=== PATIENT | male | born 1985 | race Caucasian/White ===

== ENCOUNTER 2021-05-17 02:06 | Emergency (ER) | payer MEDICAID ==
[~2021-05-17] VITALS: Ht 188 cm; Wt 72.6 kg
[2021-05-17 02:30] VITALS: BP_SYST 102
--- NOTE | 2021-05-17 03:10 | NUR ---
Patient BIB by law enforcement officers . C/O medical clearance x today. Per reported, patient had right wrist pain, redness and swelling for couple days.
--- NOTE | 2021-05-17 03:58 | NUR ---
ER Dr. Bernal at bedside examining patient.
[2021-05-17] MEDS ORDERED: HYDROcodone/ACETAMIN 5-325 MG TAB (NORCO/ VICODIN) PO ONE (04:00)
[2021-05-17] MEDS ORDERED: KETOROLAC TROMETHAMINE 30 MG VIAL IVP ONE (04:00)
[2021-05-17] MEDS ORDERED: CLINDAMYCIN 900 mg/50mL D5W 50 ML IV ONE (04:00)
[2021-05-17] MEDS ORDERED: cefTRIAXone 1 GM in LIDOCAINE 1%, 20 ML MDV 2.1 ML IM ONE (04:00)
[2021-05-17] MEDS ORDERED: HYDR-3917 PO (04:19)
[2021-05-17] MEDS ORDERED: CLIN300C12 PO (04:19)
[2021-05-17] MEDS ORDERED: IBUP-1969 PO (04:19)
[2021-05-17] MEDS ORDERED: cefTRIAXone 1 GM IVPB PREMIX 50 ML IV ONE (04:35)
[2021-05-17] MEDS ORDERED: NACL 0.9% 1,000 ML IV ONE (04:45)
[2021-05-17] MEDS ORDERED: BACITRACIN 1 GM OINT TP ONE (04:48)
[2021-05-17 04:56] VITALS: BP_SYST 102
--- NOTE | 2021-05-17 04:56 | NUR ---
Patient D/C to custody with law enforcement officers. Patient given written and verbal discharge instructions and verbalizes understanding. ER MD discussed with patient the results and treatment provided. Patient in stable condition. ID arm band removed. IV catheter removed intact and dressing applied, no active bleeding. Rx of Clindamycin, [place] and Ibuprofen given. Patient educated on pain management and to follow up with PMD. Pain Scale . Opportunity for questions provided and answered. Medication side effect fact sheet provided.
== END 2021-05-17 04:56 ==
LOC: SED 02:06
DX: L03.113 Cellulitis of right upper limb (principal); Z88.1 Allergy status to other antibiotic agents; Z79.899 Other long term (current) drug therapy
CPT/HCPCS: 96365; 96375; 99284; J0696; J1885; J3490

== ENCOUNTER 2022-04-02 18:59 | Emergency (ER) | payer MEDICAID ==
[~2022-04-02] VITALS: Ht 188 cm; Wt 77.1 kg
[~2022-04-02 18:59] MED LIST: CLIN-142 PO; HYDR-3917 PO; IBUP-1969 PO
[2022-04-02 19:10] VITALS: BP_SYST 119
--- NOTE | 2022-04-02 19:30 | NUR ---
MD KINGSLEY JONES AT BEDSIDE
--- NOTE | 2022-04-02 19:35 | NUR ---
RADIOLOGY TOOK PT FOR EXAM
[2022-04-02] MEDS ORDERED: IBUP-1971 PO (20:02)
[2022-04-02] MEDS ORDERED: HYDROcodone/ACETAMIN 5-325 MG TAB (NORCO/ VICODIN) PO ONE (20:15)
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
--- NOTE | 2022-04-02 20:37 | NUR ---
Patient given written and verbal discharge instructions and verbalizes understanding. ER MD DR TRAN discussed with patient the results and treatment provided. Patient in stable condition. ID arm band removed. Rx of ADVIL 600MG given. Patient educated on pain management and to follow up with PMD. Pain Scale 7/10. Opportunity for questions provided and answered. Medication side effect fact sheet provided.
[2022-04-02 20:40] VITALS: BP_SYST 135
== END 2022-04-02 20:40 | disposition home or self-care (01) ==
LOC: SED 18:59
DX: S62.344A Nondisplaced fracture of base of fourth metacarpal bone, right hand, initial encounter for closed fracture (principal); Z88.1 Allergy status to other antibiotic agents; Z79.899 Other long term (current) drug therapy; Y04.2XXA Assault by strike against or bumped into by another person, initial encounter; Y93.89 Activity, other specified; Y92.89 Other specified places as the place of occurrence of the external cause; Y99.8 Other external cause status
CPT/HCPCS: 99283